=== PATIENT | female | born 1965 | race Hispanic/Latino ===

== ENCOUNTER 2022-12-22 11:00 | Emergency (ER) | payer BC ==
[~2022-12-22] VITALS: Ht 160 cm; Wt 65.3 kg
[2022-12-22 11:45] LABS: BASOPHILS % 0.3 % (0.0-1.0); EOSINOPHILS % 0.1 % (0.0-6.0); HEMATOCRIT 44.9 % (34.2-44.1); HEMOGLOBIN 15.1 g/dL (12.0-16.0); LYMPHOCYTES # (AUTO) 0.6 (1.0-3.2); LYMPHOCYTES % 6.9 % (18.0-39.1); MEAN CORPUSCULAR HEMOGLOBIN 29.8 pg (28-32); MEAN CORPUSCULAR HGB CONC 33.6 g/dL (31-35); MEAN CORPUSCULAR VOLUME 88.6 fL (81-99); MONOCYTES # (AUTO) 0.1 (0.2-0.8); NEUTROPHILS # (AUTO) 7.3 (2.1-6.9); NEUTROPHILS % 91.2 % (38.7-80.0); PLATELET COUNT 326 x10e3/uL (140-360); RED BLOOD COUNT 5.07 x10e6/uL (3.6-5.1); RED CELL DISTRIBUTION WIDTH 12.2 % (11.7-14.4)
[2022-12-22 12:06] LABS: ALBUMIN 3.8 g/dL (3.5-5.0); ALBUMIN/GLOBULIN RATIO 1.2 (0.8-2.0); ANION GAP 15.6 mmol/L (8-16); CALCIUM 9.5 mg/dL (8.4-10.2); CREATININE, SERUM 0.95 mg/dL (0.57-1.11); POTASSIUM 4.6 mmol/L (3.5-5.1)
[2022-12-22] MEDS ORDERED: INSULIN REGULAR, HUMAN 100 UNIT/1 ML IV ONE (12:15)
[2022-12-22] MEDS ORDERED: SODIUM CHLORIDE FLUSH 10 ML SYR IV PRN (12:30)
[2022-12-22] MEDS ORDERED: LACTATED RINGER'S 1,000 ML IV ONE ×2 (12:30)
[2022-12-22 13:33] LABS: PHOSPHORUS 3.6 MG/DL (2.3-4.7)
[2022-12-22] MEDS ORDERED: ACETAMINOPHEN 325 MG TAB PO ONE (15:00)
== END 2022-12-22 15:20 | disposition home or self-care (01) ==
LOC: ER 11:08
DX: E11.65 Type 2 diabetes mellitus with hyperglycemia (principal); I10 Essential (primary) hypertension
CPT/HCPCS: 36415; 71046; 80053; 82948; 83735; 84100; 85025; 99284; J7121